=== PATIENT | male | born 1985 | race Caucasian/White ===

== ENCOUNTER 2020-02-02 14:41 | Emergency (ER) | payer OTHER ==
--- NOTE | 2020-02-02 15:25 | EDM.PDOC ---
ED [facility] GENERAL MEDICAL PROBLEM - General Chief Complaint: Upper Extremity Injury/Pain Stated Complaint: R SHOULDER INJURY Time Seen by Provider: 02/02/20 14:58 Source of Information: Reports: Patient History Limitations: Reports: No Limitations - History of Present Illness INITIAL COMMENTS - FREE TEXT/NARRATIVE: Patient is a 34-year-old male presenting to the emergency department with complaints of right anterior shoulder pain. States last evening he slipped and hit this area of his shoulder on some steps. He is able to move it, however it is painful. He denies any history of previous injury to this extremity. He has not taken anything for pain thus far. Right Shoulder Pain Score (Numeric/FACES): 5 - Related Data Allergies Allergy/AdvReac Type Severity Reaction Status Date / Time No Known Allergies Allergy Verified 02/02/20 15:02 Home Meds: Home Meds DULoxetine [Cymbalta] 60 mg PO DAILY 02/02/20 [History] Naproxen [Naprosyn] 500 mg PO Q12HR 5 Days #10 tab 02/02/20 [Rx] Zolpidem [Ambien] 10 mg PO BEDTIME 02/02/20 [History] Review of Systems - Review of Systems Review Of Systems: Comprehensive ROS is negative, except as noted in HPI. ED EXAM, GENERAL - Physical Exam Exam: See Below Exam Limited By: No Limitations General Appearance: Alert, WD/WN, No Apparent Distress Respiratory/Chest: No Respiratory Distress, Lungs Clear, Normal Breath Sounds, No Accessory Muscle Use, Chest Non-Tender Cardiovascular: Normal Peripheral Pulses, Regular Rate, Rhythm, No Edema, No Gallop, No JVD, No Murmur, No Rub Extremities: Other (Mild swelling to the anterior right shoulder. Abduction and flexion of the shoulder is limited due to pain. Patient does have full extension without pain.) Neurological: Alert, Oriented, CN II-XII Intact, Normal Cognition, Normal Gait, Normal Reflexes, No Motor/Sensory Deficits Psychiatric: Normal Affect, Normal Mood Skin Exam: Warm, Dry, Intact, Normal Color, No Rash Course - Vital Signs Last Recorded V/S: Last Vital Signs Temp 98.4 F 02/02/20 15:33 Pulse 76 02/02/20 15:33 Resp 16 02/02/20 15:33 BP 166/110 H 02/02/20 15:33 Pulse Ox 99 02/02/20 15:33 - Orders/Labs/Meds Orders: Active Orders 24 hr Category Date Time Status Shoulder Comp Rt [CR] Stat Exams 02/02/20 15:03 Taken - Re-Assessments/Exams Free Text/Narrative Re-Assessment/Exam: 02/02/20 15:48 Xray of the right shoulder was negative for any acute abnormalities. Discussed with pt that he likely contused his shoulder. Recommend ice and NSAIDS. I will write a prescription for Naprosyn. Discharge instructions as documented. Departure - Departure Time of Disposition: 15:49 Disposition: Home, Self-Care 01 Condition: Good Clinical Impression: Shoulder contusion Qualifiers: Encounter type: initial encounter Laterality: right Qualified Code(s): S40.011A - Contusion of right shoulder, initial encounter - Discharge Information *PRESCRIPTION DRUG MONITORING PROGRAM REVIEWED*: No *COPY OF PRESCRIPTION DRUG MONITORING REPORT IN PATIENT TARSHA: No Prescriptions: Naproxen [Naprosyn] 500 mg PO Q12HR 5 Days #10 tab Instructions: Contusion, [id number] Referrals: Emely Childers MD [Primary Care Provider] - Forms: ED Department Discharge Additional Instructions: You were seen in the emergency department today for right shoulder pain after falling last evening. Xrays were completed and found to be normal. It is likely that you bruised your shoulder. Recommend that you ice your shoulder intermittently over the next few days. A prescription for Naprosyn has been sent to [facility]. Take this medications as prescribed. You may also you tylenol in addition to this medications as needed. If you are still experiencing significant discomfort after 1-2 weeks, recommend that you follow up with your primary care provider in the clinic. Return to ER as needed. Sepsis Event Note (ED) - Focused Exam Vital Signs: Vital Signs Temp Pulse Resp BP Pulse Ox 02/02/20 15:33 98.4 F 76 16 166/110 H 99 - My Orders Last 24 Hours: My Active Orders 02/02/20 15:03 Shoulder Comp Rt [CR] Stat - Assessment/Plan Last 24 Hours: My Active Orders 02/02/20 15:03 Shoulder Comp Rt [CR] Stat
--- NOTE | 2020-02-02 15:43 | CR ---
Right shoulder: 3 views of the right shoulder were obtained. Comparison: No previous study. Glenohumeral joint and acromioclavicular joint appears unremarkable. No acute fracture or other abnormality is appreciated. Impression: 1. No abnormality is appreciated on 3 view right shoulder study. Diagnostic code #1 This report was dictated in MDT
== END 2020-02-02 16:15 | disposition home or self-care (01) ==
LOC: JD.ED 14:41
DX: S40.011A Contusion of right shoulder, initial encounter (principal); Z79.899 Other long term (current) drug therapy; W01.10XA Fall on same level from slipping, tripping and stumbling with subsequent striking against unspecified object, initial encounter
CPT/HCPCS: 73030-26-RT; 73030-RT; 99283